=== PATIENT | male | born 1950 | race Caucasian/White ===

== ENCOUNTER 2018-11-29 10:02 | Inpatient (IN) | payer MEDICARE, OTHER ==
[~2018-11-29] VITALS: Ht 193 cm; Wt 99.2 kg
[~2018-11-29 10:02] MED LIST: ASPIRIN E.C. 8181 MG PO; FERROUS SU325 MG/TAB PO; FOLIC ACID 40400 MCG PO; GLUCOSAMINE & C1 CA1 PO; NATURAL E400 IU PO; NORCO 325 MG-51 TAB PO; OMEGA 31000 MG PO; VITAMIN C500 MG PO
[2019-02-08] VITALS (11 sets, daily range): BP systolic 119–155; BP diastolic 65–87; PULSE 49–91; TEMP 97.7–98
--- NOTE | 2019-02-08 09:30 | NUR ---
arrived on unit ambulatory to room 332, prepped for surgery without incident, explanation given for going to and returning from surgery to patient and his , verbalizes understanding
--- NOTE | 2019-02-08 10:00 | NUR ---
to surgery per bed, spoke with operating room nurse who is in with Dr Rodriguez and she will inform him of small "pimple" area under left arm and right hip
--- NOTE | 2019-02-08 15:20 | NUR ---
returned to room from PACU per bed, awake and alert, IV infusing and placed on pump at 125ml/hr, O2 on at 2L/NC, reddy cath patent draining clear yellow urine, bulky dressing to right hip CD&I with ice on, SCDs and MATT hose on bilaterally, has full sensation and able to move move lower extremities, full assessment completed, see interventions for further info, denies needs, at bedside
--- NOTE | 2019-02-08 15:45 | NUR ---
beginning to c/o pain to right hip, medicated with roxicodone 5mg and scheduled tylenol
--- NOTE | 2019-02-08 15:45 | NUR ---
taking sips of water and tolerates well
--- NOTE | 2019-02-08 16:08 | NUR ---
MARANDA met with the patient and his , Hailey (ph#[phone]), to discuss discharge plan. The patient lives in [place] with his . He reports independence with ADLs and has a cane and walker. The patient's PCP is Dr. Omar Peraza and he receives his medications at [facility]. He reports no difficulties obtaining his meds. The patient does not have advanced directives in EMR, but his states that they provided a copy of them to admissions this morning. She states that she is his DPOA-HC. The patient plans to return home with his and receive outpatient therapy at [facility] in [place]. No additional needs at this time.
--- NOTE | 2019-02-08 16:40 | NUR ---
continues to c/o pain to right hip and medicated with second roxicodone 5mg
--- NOTE | 2019-02-08 17:15 | NUR ---
continues to c/o pain to right hip, medicated with morphine 2mg slow IV, sitting up in bed and supper delivered
--- NOTE | 2019-02-08 18:00 | NUR ---
had clear liquid tray, called dietary and they will provide general tray, states pain is only 2/10 since having morphine and feels much better
[2019-02-09 03:10] VITALS: BP 121/61; PULSE 72; TEMP 97.9
--- NOTE | 2019-02-09 03:15 | NUR ---
Patient has rested well this shift. Ambulated to the surgical care nurses desk and back to room with 2 assist for safety. Patient did well with this. States baseline pain is 3-4, but it increases with activity. Pain well controlled with PRN roxycodone and scheduled tylenol. Antibiotic given as prescribed. Denies any further needs. Will continue to monitor.
[2019-02-09 07:09] LABS: HEMATOCRIT 40.4 % (42.0-52.0); HEMOGLOBIN 13.8 g/dl (13.5-18.0)
--- NOTE | 2019-02-09 07:25 | NUR ---
REPORT FROM ALBERT SOOD.
[2019-02-09 08:22] VITALS: BP 130/66; PULSE 74; TEMP 98.3
--- NOTE | 2019-02-09 09:22 | NUR ---
PT UP IN BED FOR BREAKFAST. OUT TO [facility] WITH THERAPY. AMBULATING WITH STEADY GAIT. PAIN WELL CONTROLLED WITH PO PAIN MEDS.
--- NOTE | 2019-02-09 11:10 | NUR ---
POLLARD CATHETER DISCONTINUED PER ORDERS. TIP INTACT, PT TOLERATED WELL. TEACHING PROVIDED.
[2019-02-09 11:50] VITALS: BP 105/57; PULSE 65; TEMP 98.6
[2019-02-09] MEDS ORDERED: ASPI325T6 PO (13:29)
[2019-02-09] MEDS ORDERED: CELEBREX 200MG200 MG PO (13:29)
[2019-02-09] MEDS ORDERED: ROXICODONE 55 MG/TAB PO (13:30)
[2019-02-09] MEDS ORDERED: SENNA-S 50 MG-81 TAB PO (13:30)
[2019-02-09 15:17] VITALS: BP 115/54; PULSE 74; TEMP 99.4
--- NOTE | 2019-02-09 15:55 | NUR ---
DRESSING CHANGE COMPLETE, EDGES WELL APPROXIMATED STERI STRIPS INTACT.
--- NOTE | 2019-02-09 18:48 | NUR ---
REPORT TO ALBERT SOOD.
[2019-02-09] MEDS ORDERED: INDERAL 20MG20 MG PO (19:15)
[2019-02-09 20:18] VITALS: BP 130/65; PULSE 87; TEMP 99.5
[2019-02-10 00:48] VITALS: BP 130/71; PULSE 93; TEMP 99.1
[2019-02-10 04:16] VITALS: BP 133/67; PULSE 86; TEMP 98.7
[2019-02-10 07:31] LABS: HEMATOCRIT 40.2 % (42.0-52.0); HEMOGLOBIN 13.7 g/dl (13.5-18.0)
[2019-02-10 07:35] VITALS: BP 130/77; PULSE 94; TEMP 99.2
--- NOTE | 2019-02-10 12:30 | NUR ---
Minimal complaints of hip pain. Ambulated with walker in halls. Right hip dressing CDI. Prescriptions and home instructions given. Dismissed to home per w/c with spouse.
== END 2019-02-10 12:30 | disposition home or self-care (01) | DRG 470 ==
LOC: JCC 02-08 08:27
PROVIDERS: ADMIT Orthopaedic Surgery
PROC: 0SR904A Replacement of Right Hip Joint with Ceramic on Polyethylene Synthetic Substitute, Uncemented, Open Approach (ICD-10-PCS; principal; 2019-02-08 10:00)
DX: M16.11 Unilateral primary osteoarthritis, right hip (principal)
CPT/HCPCS: A4314; C1713; C1776; J0690; J2250; J2270; J2704; J3010; J7120

== ENCOUNTER → 2019-01-22 | Outpatient (CLI) | payer MEDICARE, OTHER | LOC: COL.LAB 13:30 | DX: Z01.812 Encounter for preprocedural laboratory examination (principal); Z01.83 Encounter for blood typing; M16.11 Unilateral primary osteoarthritis, right hip ==

== ENCOUNTER → 2019-02-05 | Outpatient (CLI) | payer MEDICARE, OTHER | LOC: COL.LAB 09:25 | DX: M16.11 Unilateral primary osteoarthritis, right hip (principal) ==

== ENCOUNTER → 2019-02-14 | Outpatient (CLI) | payer MEDICARE, OTHER ==
[~2019-02-14] MED LIST changes: +ASPI325T6 PO; +CELEBREX 200MG200 MG PO; +INDERAL 20MG20 MG PO; +ROXICODONE 55 MG/TAB PO; +SENNA-S 50 MG-81 TAB PO
== END ==
LOC: COL.VAS 14:15
DX: M79.89 Other specified soft tissue disorders (principal)

== ENCOUNTER 2020-09-25 16:51 | Inpatient (IN) | payer MEDICARE, OTHER ==
[~2020-09-25] VITALS: Ht 193 cm; Wt 111.8 kg
[2020-09-25] MEDS ORDERED: LIPITOR20 MG PO (17:06)
[2020-09-25] MEDS ORDERED: MOTRIN 200200 MG/TAB PO (17:07)
[2020-09-25] MEDS ORDERED: VITAMIN E1000 U/CAP PO (17:07)
[2020-09-25] MEDS ORDERED: FOLIC ACID0.4 MG PO (17:07)
[2020-09-25 17:23] LABS: BASO % 0.4 % (0.0-2.0); EOS # 0.1 (0.0-0.7); EOS % 1.2 % (0-4.0); GRAN # 6.5 (1.4-6.5); GRAN % 69.2 % (42.2-75.2); HEMATOCRIT 48.6 % (42.0-52.0); HEMOGLOBIN 16.8 g/dl (13.5-18.0); LYMPH % 21.4 % (20.0-51.0); MEAN CELL VOLUME 89 fl (80.0-100.0); MEAN CORPUSCULAR HEMOGLOBIN 31 pg (27.0-31.0); MEAN CORPUSCULAR HGB CONC 35 g/dl (33.0-37.0); MEAN PLATELET VOLUME 9.6 fl (7.4-10.4); MONO # 0.7 (0.1-0.6); MONO % 7.6 % (1.7-9.3); PLATELET COUNT 261 K/mm3 (130-400); RED BLOOD COUNT 5.49 M/mm3 (4.20-5.60); REDCELL DISTRIBUTION WIDTH-CV 12.8 % (11.5-14.5)
[2020-09-25 17:34] LABS: ALANINE AMINOTRANSFERASE 34 U/L (4-49); ALBUMIN 4.4 gm/dL (3.5-5.0); ALKALINE PHOSPHATASE 107 U/L (50-136); ANION GAP 6 mmol/L (7-16); AST,SGOT 40 U/L (15-37); BILIRUBIN,TOTAL 1.2 mg/dL (0.0-1.0); BLOOD UREA NITROGEN 29 mg/dL (9-20); CALCIUM 9.9 mg/dL (8.4-10.2); CARBON DIOXIDE 24 mmol/L (22-30); CHLORIDE 110 mmol/L (98-107); CREATININE, serum 1.06 (0.66-1.25); GLUCOSE 135 mg/dL (74-106); SODIUM 140 mmol/L (137-145); TOTAL PROTEIN 7.5 gm/dL (6.4-8.2)
[2020-09-25 17:35] LABS: PROTHROMBIN TIME 11.4 SECONDS (9.7-12.8)
[2020-09-25 17:37] LABS: PARTIAL THROMBOPLASTIN TIME 29.1 SECONDS (26.0-37.0)
[2020-09-25 17:55] LABS: TROPONIN-I < 0.012 ng/mL (0.000-0.035)
[2020-09-25 19:07] LABS: MAGNESIUM 2.1 mg/dL (1.6-2.3); PHOSPHOROUS 3.9 mg/dL (2.5-4.5)
[2020-09-26] VITALS (8 sets, daily range): BP systolic 93–119; BP diastolic 49–75; PULSE 50–68; TEMP 97.5–98.1
[2020-09-26 03:55] LABS: PARTIAL THROMBOPLASTIN TIME 109.5 SECONDS (26.0-37.0)
--- NOTE | 2020-09-26 04:02 | NUR ---
ARRIVED ON UNIT VIA STRETCHER WITH ER STAFF, AWAKE, ALERT, ORIENTED X 3, VERBAL WITH CLEAR SPEECH, ABLE TO MAKE ALL NEEDS KNOWN, ASSESSMENT COMPLETED AT THIS TIME, UPDATED ON PLAN OF CARE- VERBALIZED UNDERSTANDING
--- NOTE | 2020-09-26 06:50 | NUR ---
appears to be dozing, bedside shift report received from INDIGO Lopez
--- NOTE | 2020-09-26 07:40 | NUR ---
appears to be dozing, awakens easily, full assessment completed, see interventions for further info, telemetry continues to show heart rate in the 50s and irregular, he denies pain or needs at this time
--- NOTE | 2020-09-26 09:30 | NUR ---
awake now, at bedside, denies needs
--- NOTE | 2020-09-26 10:08 | NUR ---
vp lab notified of order for ZAIRE and cardioversion
--- NOTE | 2020-09-26 10:25 | NUR ---
I spoke with pt and his , Hailey, concerning current situation. Pt lives with in [facility]. Pt is independent with ADL's and does not have any DME. Pt's primary PCP is Dr. Omar Peraza. Pt uses [facility] in [place] for his medications. Pt does not have difficulty in obtaining medications. Pt has current DPOA with listed as contact. Her phone number is [phone]. There is not a copy on chart at present and was asked to bring a copy tomorrow to be placed on the chart. Pt anticipates going home on discharge.
--- NOTE | 2020-09-26 10:40 | NUR ---
lab in to draw blood
[2020-09-26 10:54] LABS: BASO % 0.6 % (0.0-2.0); EOS # 0.1 (0.0-0.7); EOS % 1.9 % (0-4.0); GRAN # 4.1 (1.4-6.5); HEMATOCRIT 45.8 % (42.0-52.0); HEMOGLOBIN 15.3 g/dl (13.5-18.0); LYMPH # 2.1 (1.2-3.4); LYMPH % 30.4 % (20.0-51.0); MEAN CELL VOLUME 91 fl (80.0-100.0); MEAN CORPUSCULAR HEMOGLOBIN 30 pg (27.0-31.0); MEAN CORPUSCULAR HGB CONC 33 g/dl (33.0-37.0); MEAN PLATELET VOLUME 9.3 fl (7.4-10.4); MONO # 0.6 (0.1-0.6); MONO % 7.8 % (1.7-9.3); PLATELET COUNT 205 K/mm3 (130-400); RED BLOOD COUNT 5.05 M/mm3 (4.20-5.60); REDCELL DISTRIBUTION WIDTH-CV 13.1 % (11.5-14.5)
[2020-09-26 11:04] LABS: INR 1.1 (0.8-3.0); PROTHROMBIN TIME 12.2 SECONDS (9.7-12.8)
[2020-09-26 11:06] LABS: CALCIUM 8.3 mg/dL (8.4-10.2); CREATININE, serum 0.82 (0.66-1.25); POTASSIUM 3.8 mmol/L (3.4-5.0)
[2020-09-26 11:23] LABS: CHOLESTEROL RISK RATIO 2.7
[2020-09-26 11:37] LABS: THYROID STIMULATING HORMONE 1.19 uIU/mL (0.465-4.680)
--- NOTE | 2020-09-26 12:38 | NUR ---
spoke with pharmacist regarding his heparin dose and change made
--- NOTE | 2020-09-26 13:01 | NUR ---
Bedside shift report complete. INDIGO Mendiola provided this RN with the plan of care for the patient. Needs addressed, pt. resting in bed quietly.
--- NOTE | 2020-09-26 13:06 | NUR ---
appears to be dozing, bedside shift report given to INDIGO Cohen
--- NOTE | 2020-09-26 13:46 | NUR ---
INDIGO Godinez here to orange picker patient for procedure.
--- NOTE | 2020-09-26 15:07 | NUR ---
Pt. back from research laboratory manager. Pt. alert and able to answer questions. at bedside. Post op intervals in proccess. Plan of care discussed, waiting for the MD to put orders in.
[2020-09-26] MEDS ORDERED: ELIQUIS 5MG PO (16:39)
[2020-09-26] MEDS ORDERED: MULTAQ400 MG PO (16:39)
--- NOTE | 2020-09-26 17:17 | NUR ---
Discharge orders in place for this patient. Pt. reports his pharmacy is closed tonight so he will not be able to parts picker new prescriptions. Nurse practitioner Chata called to be notified of situation. Chata reports she will go see the patient and give the patient samples of the prescribed medications so he can have his medication for the time being. Patient notified and agreeable with the plan of care. Pt. reports his will be able to pick him up tonight for discharge.
--- NOTE | 2020-09-26 19:30 | NUR ---
DISCHARGE INSTRUCTIONS REVIEWED WITH PATIENT BY BOBBY SOOD. VERBALIZED UNDERSTANDING.
--- NOTE | 2020-09-26 20:15 | NUR ---
DC'D IV SITE FROM RT AC, ANGIOCATH INTACT. SPOUSE AT BEDSIDE.
--- NOTE | 2020-09-26 20:20 | NUR ---
DISCHARGED VIA W/C TO PRIVATE CAR. COPY OF DISCHARGE INSTRUCTIONS SENT WITH PATIENT WELL PERSONAL BELONGINGS.
== END 2020-09-26 20:20 | disposition home or self-care (01) | DRG 310 ==
LOC: COL.ER 16:51 → SURG 18:33
PROVIDERS: Family Medicine; Nurse Practitioner Family; Student in an Organized Health Care Education/Training Program; ADMIT Family Medicine
PROC: 5A2204Z Restoration of Cardiac Rhythm, Single (ICD-10-PCS; principal; 2020-09-26)
DX: I48.91 Unspecified atrial fibrillation (principal); Z96.643 Presence of artificial hip joint, bilateral; R25.1 Tremor, unspecified; E78.5 Hyperlipidemia, unspecified; Z20.822 Contact with and (suspected) exposure to COVID-19
CPT/HCPCS: 99223-AI; 99232-AI; 99239; J1644; J2704; J7030; Q9967

== ENCOUNTER 2020-11-10 23:49 | Emergency (ER) | payer MEDICARE, OTHER ==
[~2020-11-10] VITALS: Ht 193 cm; Wt 111.4 kg
[~2020-11-10 23:49] MED LIST changes: +ELIQUIS 5MG PO; +FOLIC ACID0.4 MG PO; +LIPITOR20 MG PO; +MOTRIN 200200 MG/TAB PO; +MULTAQ400 MG PO; +VITAMIN E1000 U/CAP PO
[2020-11-11] MEDS ORDERED: CEPHALEXIN500 M1 PO (01:45)
[2020-11-11 01:58] VITALS: BP 133/75; PULSE 60; TEMP 98.4
== END 2020-11-11 01:58 | disposition home or self-care (01) ==
LOC: COL.ER 23:49
DX: S61.232A Puncture wound without foreign body of right middle finger without damage to nail, initial encounter (principal); W01.118A Fall on same level from slipping, tripping and stumbling with subsequent striking against other sharp object, initial encounter